=== PATIENT | female | born 1995 | race Caucasian/White ===

== ENCOUNTER → 2022-02-16 13:19 | Outpatient (BNVA) | payer MEDICAID, SELFPAY | PROVIDERS: Visit Provider Nurse Practitioner Family | DX: R11.0 Nausea (principal); Z32.01 Encounter for pregnancy test, result positive | CPT/HCPCS: 81025; 84702 ==

== ENCOUNTER → 2022-04-14 13:53 | Outpatient (BNVA) | payer OTHER, MEDICAID, SELFPAY | PROVIDERS: Visit Provider Registered Nurse Neonatal Intensive Care | DX: Z32.00 Encounter for pregnancy test, result unknown (principal) | CPT/HCPCS: 81025 ==

== ENCOUNTER 2023-08-05 20:08 | Emergency (ER) | payer BC, MEDICAID, SELFPAY ==
[2023-08-05 20:11] VITALS: BP 145/84; PULSE 100; RESP 17; TEMP 36.8; O2SAT 98; BMI 32.9
--- NOTE | 2023-08-05 20:26 | USR_ITS ---
PROCEDURE INFORMATION: Exam: US First Trimester, Transabdominal and US , Transvaginal Exam date and time: 08/05/2023 9:58 PM Age: 28 years old Clinical indication: Lmp or gestational age (in weeks): 6w3d; Antepartum complications; Bleeding; Additional info: Preg, vaginal bleeding LABS AND CLINICAL REPORTS: Last menstrual period start date: 06/21/2023 Gestational age (Established): 6 w 3 d Estimated due date (Established): 03/27/2024 TECHNIQUE: Imaging protocol: Real-time transabdominal obstetrical ultrasound of the maternal pelvis and a first trimester , less than 14 weeks 0 days, with image documentation. Transvaginal imaging was used for better evaluation of the fetus, adnexa, and/or cervix. COMPARISON: No relevant prior studies available. FINDINGS: There is an intrauterine gestational sac that contains a yolk sac, and possibly a very small/early pole. Mean gestational sac diameter of 13.5 mm estimates gestational age of around 6 weeks. Possible [place]Rump Length is too small/early to accurately measure. No definitive pole or heart activity identified at this time. These findings are not always definitely seen until 5 1/2 to 6 weeks gestation. Therefore, viability cannot definitely be confirmed or excluded at this time. If there is further question of viability, follow up exam in several days could be helpful. Cervical length evaluated with endovaginal scanning measures 3.9 cm. No definite cervical canal dilation or fluid on the provided images. Small amount of cul-de-sac/free pelvic fluid. Suspect a small possible complex cyst in the right ovary, measuring 21 x 18 x 18 mm, possibly corpus luteum. Maternal ovaries/adnexa otherwise appear essentially unremarkable. Blood flow detected in each ovary. The urinary bladder was not completely evaluated/imaged at this time. US/US OB <=14 wk fetus w transvag IMPRESSION: 1. Early intrauterine gestational sac containing a yolk sac, and possibly a very small/early pole. See details above. 2. Follow up may be helpful depending on clinical indications. 3. Suspect a small possible complex cyst in the right ovary, measuring 21 x 18 x 18 mm, possibly corpus luteum. 4. Small amount of cul-de-sac/free pelvic fluid. 5. Other details discussed above.
[2023-08-05 20:37] LABS: Blood Urine 3+ (Negative); Glucose Urine UA Norm (Normal); Ketones Urine Negative (Negative); Protein Urine Neg (Negative); Specific Gravity, Urine 1.015 (1.005-1.030); Urine Appearance Clear (CLEAR); Urine Color Yellow (Yellow); pH Urine 6 (5-7)
--- NOTE | 2023-08-05 20:37 | W.ED.FEMALGU ---
HPI - Female Genitourinary General: Chief complaint: Vaginal Bleeding Stated complaint: vaginal bleeding -6 weeks Time Seen by Provider: 08/05/23 20:20 History of Present Illness: 28-year-old female who believes she is 6 weeks by dates. She tells me she has had 2 live births, and a miscarriage involving quadruplets. She has not had significant problems with this . This evening, she noticed orange to red discharge on toilet paper, and then brown/old blood discharge 1 other time. No clots or tissue. She is having some mild pelvic cramping. No fever. No other discharge. Associated symptoms: Deny abdominal pain, headache(s) or nausea Review of Systems Const: Denies: fever(s), chills or body aches Eyes: Denies: change in vision Card: Denies: chest pain or palpitations Resp: Denies: dyspnea, productive cough, non-productive cough or wheezing GI: Denies: abdominal pain, nausea, vomiting, diarrhea or hematochezia : Denies: difficulty voiding Skin/Breast: Denies: rash Neuro: Denies: headache(s), weakness in extremities, dizziness or confusion PFSH ED PFSH: Medical History Left acute otitis media No pertinent past medical history Otitis external Surgical History Hx of appendectomy Hx of section Hx of tonsillectomy Family History Denies family history of Colon cancer Ovarian cancer Diabetes Heart disease Breast cancer Family history of thyroid problem Hypertension Uterine cancer Stroke Hyperchloremia Social History Substance/Drug Use: current Substance/Drug use frequency: daily Physical Exam Const: COMMON NORMALS: no acute distress GENERAL APPEARANCE: cooperative; not ill appearing and not frail appearing HENMT: COMMON NORMALS: normocephalic, atraumatic and Normal external nose present HEAD & SCALP: normocephalic and atraumatic FACE & SINUS: normal facial exam and face symmetric NOSE: Normal external nose present Eye: COMMON NORMALS: Equal, round and reactive pupils present and EOMs intact bilaterally PUPIL: Yes Equal, round and reactive pupils present Neck/C-Spine: GENERAL: Yes trachea midline Chest: CHEST: Yes Symmetrical chest wall rise Resp: COMMON NORMALS: normal respiratory effort, No retractions, No use of accessory muscles and clear to auscultation bilaterally AUSCULTATION: clear to auscultation bilaterally Cardio: COMMON NORMALS: regular rate and regular rhythm RATE: regular rate RHYTHM: regular rhythm GI: COMMON NORMALS: Normal to inspection, nondistended, normoactive bowel sounds present Extremity: COMMON NORMALS: no pedal edema Neuro: ARTEMIO COMA SCALE: document GCS findings [place] coma scale eye opening: Spontaneous [place] coma scale verbal response: Orientated Artemio coma scale motor response: Obey commands [place] coma scale total score: 15 SENSORY EXAM: Yes extremities (intact) Psych: COMMON NORMALS: speech normal SPEECH: Yes normal speech Skin: COMMON NORMALS: no rashes or lesions noted GENERAL SKIN EXAM: no rashes or lesions noted Course Vital Signs: Vital signs: Vital Signs Temperature 98.3 F 08/05/23 20:11 Pulse Rate 92 08/05/23 23:04 Respiratory Rate 16 08/05/23 23:04 Blood Pressure 145/84 08/05/23 20:11 Pulse Oximetry 97 08/05/23 23:04 Oxygen Delivery Me thod Room Air 08/05/23 20:11 MDM - Female Medical Decision Making 28-year-old female who is at 6 weeks. She experience spotting today. No clots or tissue. White blood cell count is 11.7. Hemoglobin 12.3. BMP is normal. Liver enzymes are normal. She is Rh+. Urinalysis is normal. Ultrasound of the pelvis shows a scant amount of pelvic free fluid. There is blood flow to both ovaries. Yolk sac is present in the uterus. Small amount of tissue present in the yolk sac, but is not measurable. Yolk sac measures 6 weeks which is comparable to her hCG and dates by period. She will be allowed home. Pelvic rest. Close outpatient follow-up. Refer to women's health. Lab Data 08/05/23 20:36 08/05/23 20:36 Radiology Impressions Obstetrics Ultrasound 08/05/23 20:26 IMPRESSION: 1. Early intrauterine gestational sac containing a yolk sac, and possibly a very small/early pole. See details above. 2. Follow up may be helpful depending on clinical indications. 3. Suspect a small possible complex cyst in the right ovary, measuring 21 x 18 x 18 mm, possibly corpus luteum. 4. Small amount of cul-de-sac/free pelvic fluid. 5. Other details discussed above. Laboratory Results WBC 11.69 10^3/uL (3.29-11.43) H 08/05/23 20:36 RBC 3.97 10^6/uL (3.85-5.65) 08/05/23 20:36 Hgb 12.30 g/dL (11.27-16.99) 08/05/23 20:36 Hct 37.7 % (36-47) 08/05/23 20:36 MCV 95.0 fl (85-98) 08/05/23 20:36 MCH 31.0 pg (27-33) 08/05/23 20:36 MCHC 32.6 g/dL (30-55) 08/05/23 20:36 RDW 11.9 % (12.1-15.1) L 08/05/23 20:36 Plt Count 276 10^3/cmm (157-399) 08/05/23 20:36 MPV 9.9 fL (7.4-10.4) 08/05/23 20:36 Neut % (Auto) 53.5 % 08/05/23 20:36 Lymph % (Auto) 34.1 % 08/05/23 20:36 [place] % (Auto) 9.5 % 08/05/23 20:36 Eos % (Auto) 2.0 % 08/05/23 20:36 Baso % (Auto) 0.4 % 08/05/23 20:36 Neut # (Auto) 6.25 10^3/uL (1.8-7.7) 08/05/23 20:36 Lymph # (Auto) 4.0 10^3/uL (0.8-4.8) 08/05/23 20:36 [place] # (Auto) 1.1 10^3/uL (0.2-0.9) H 08/05/23 20:36 Eos # (Auto) 0.2 10^3/uL (0.0-0.8) 08/05/23 20:36 Baso # (Auto) 0.1 10^3/uL (0.0-0.1) 08/05/23 20:36 Nucleated RBC % (auto) 0 % 08/05/23 20:36 Nucleated RBCs # 0.0 /100WBC 08/05/23 20:36 PT 13.00 SECONDS (12.1-14.9) 08/05/23 20:36 INR 0.96 (0.8-1.2) 08/05/23 20:36 APTT 28.8 SECONDS (23.9-36.7) 08/05/23 20:36 Sodium 136 mmol/L (136-145) 08/05/23 20:36 Potassium 4.0 mmol/L (3.5-5.1) 08/05/23 20:36 Chloride 103 mmol/L (98-107) 08/05/23 20:36 Carbon Dioxide 26 mmol/L (22-29) 08/05/23 20:36 Anion Gap 11.0 (5-19) 08/05/23 20:36 BUN 14 mg/dL (6-20) 08/05/23 20:36 Creatinine 0.6 mg/dL (0.5-0.9) 08/05/23 20:36 GFR Calculation 117.4 mL/min (90-130) 08/05/23 20:36 Glucose 93 mg/dL (65-115) 08/05/23 20:36 Calculated Osmolality 282 mOsm/kg (285-295) L 08/05/23 20:36 Calcium 9.1 mg/dL (8.5-10.5) 08/05/23 20:36 Total Bilirubin 0.2 mg/dL (0.15-1.2) 08/05/23 20:36 AST 19 U/L (0-32) 08/05/23 20:36 ALT 21 U/L (0-33) 08/05/23 20:36 Alkaline Phosphatase 74 U/L (35-105) 08/05/23 20:36 Total Protein 6.7 g/dL (6.6-8.7) 08/05/23 20:36 Albumin 4.0 g/dL (3.5-5.2) 08/05/23 20:36 Globulin 2.7 g/dL (1.3-4.6) 08/05/23 20:36 Ser , Semi-Qnt 25269.00 mIU/mL 08/05/23 20:36 Urine Color Yellow (Yellow) 08/05/23 20:27 Urine Appearance Clear (CLEAR) 08/05/23 20:27 Urine pH 6 (5-7) 08/05/23 20:27 Ur Specific [place] 1.015 (1.005-1.030) 08/05/23 20:27 Urine Protein Neg (Negative) 08/05/23 20:27 Urine Glucose (UA) Norm (Normal) 08/05/23 20:27 Urine Ketones Negative (Negative) 08/05/23 20:27 Urine Blood 3+ (Negative) H 08/05/23 20:27 Urine Nitrate Negative (Negative) 08/05/23 20:27 Urine Bilirubin Neg (Negative) 08/05/23 20:27 Urine Urobilinogen Neg mg/dL (Negative) 08/05/23 20:27 Ur Leukocyte Esterase Negative (Negative) 08/05/23 20:27 Urine RBC 0-4 /hpf (0-2) H 08/05/23 20:27 Urine WBC None /hpf (0-5) 08/05/23 20:27 Ur Squamous Epith Cells None /hpf (0-5) 08/05/23 20:27 Amorphous Sediment Not Reportable 08/05/23 20:27 Urine Bacteria None /hpf (NONE) 08/05/23 20:27 Blood Type O Positive 08/05/23 20:36 Rho(D) Type Rh positive 08/05/23 20:36 All radiology interpretation(s) finalized by discharge Discharge Plan Discharge Patient Disposition: Home Clinical Impression: Threatened Condition: Stable Prescriptions: No Action cyclobenzaprine 5 mg tablet 5 mg PO TID PRN (Reason: muscle spasm) Qty: 14 0RF prednisone 20 mg tablet 40 mg PO DAILY 5 Days Qty: 10 0RF amoxicillin 875 mg tablet 875 mg PO BID 10 Days Qty: 20 0RF Discharge Orders: Discharge ED (Routine); Ordered 08/05/23 Ordered By: Mahesh Hutson Patient Instructions: Threatened Miscarriage (ED) Activity Restrictions/Additional Instructions: You are being diagnosed with a threatened miscarriage, which simply means you have had bleeding in early . Your appears viable, and appropriate to gestational dates associated with your last menstrual period. Follow-up with your doctor. Case management will help you find an software asset management analyst. Return for worsening vaginal bleeding, passing clots, soaking a pad an hour for more than 3 hours in a row, fever, vomiting, other concerning symptoms. Do not lift anything greater than 10 pounds, limit bending and stooping, and no sexual intercourse for the next week. Coding Level of Care Code ED Health Care Coach for Mariana Das
[2023-08-05 20:38] LABS: Add Urine Microscopic? YES; Bilirubin Urine Neg (Negative); Leukocyte Esterase Urine Negative (Negative); Nitrate Urine Negative (Negative); Urobilinogen Urine Neg (Negative)
[2023-08-05 20:50] LABS: Basophils # 0.1 10^3/uL (0.0-0.1); Basophils % 0.4 %; Eosinophils # 0.2 10^3/uL (0.0-0.8); Hematocrit 37.7 % (36-47); Lymphocytes % 34.1 %; Mean Corpuscular HGB Conc 32.6 g/dL (30-55); Mean Platelet Volume 9.9 fL (7.4-10.4); Monocytes # 1.1 10^3/uL (0.2-0.9); Monocytes % 9.5 %; Neutrophils # 6.25 10^3/uL (1.8-7.7); Neutrophils % 53.5 %; Nucleated Red Blood Cells % 0 %; Platelet Count 276 10^3/cmm (157-399); Red Blood Count 3.97 10^6/uL (3.85-5.65); Red Cell Distribution Width 11.9 % (12.1-15.1); White Blood Count 11.69 10^3/uL (3.29-11.43)
[2023-08-05 20:50] LABS: Add Urine Culture? No; RBC Urine 0-4 /hpf (0-2)
[2023-08-05 21:04] LABS: INR 0.96 (0.8-1.2)
[2023-08-05 21:05] LABS: Partial Thromboplastin Time 28.8 SECONDS (23.9-36.7)
[2023-08-05 21:23] LABS: Alanine Aminotransferase 21 U/L (0-33); Alkaline Phosphatase 74 U/L (35-105); Aspartate Amino Transferase 19 U/L (0-32); Blood Urea Nitrogen 14 mg/dL (6-20); Calcium 9.1 mg/dL (8.5-10.5); Carbon Dioxide 26 mmol/L (22-29); Chloride 103 mmol/L (98-107); Globulin 2.7 g/dL (1.3-4.6); Glomerular Filtration Rate 117.4 mL/min (90-130); Glucose 93 mg/dL (65-115); Osmolality Calculated 282 mOsm/kg (285-295); Sodium 136 mmol/L (136-145); Total Bilirubin 0.2 mg/dL (0.15-1.2); Total Protein 6.7 g/dL (6.6-8.7)
[2023-08-05 23:04] VITALS: PULSE 92; RESP 16; O2SAT 97
--- NOTE | 2023-08-06 07:17 | DCPLANNER ---
Message sent to [facility] .
== END 2023-08-05 23:02 | disposition home or self-care (01) ==
PROVIDERS: Emergency Provider Emergency Medicine
DX: O20.0 Threatened abortion (principal); Z3A.01 Less than 8 weeks gestation of pregnancy
CPT/HCPCS: 36415; 76801; 76817; 80053; 81001; 84702; 85025; 85610; 85730; 86900; 99284

== ENCOUNTER 2024-03-27 03:52 | Inpatient (IN) | payer BC, MEDICAID, SELFPAY ==
[2024-03-27] VITALS (52 sets, daily range): BP systolic 93–146; BP diastolic 51–102; PULSE 47–114; RESP 15–18; TEMP 36.5–36.7; O2SAT 92–99
[2024-03-27 03:55] LABS: Basophils # 0.1 10^3/uL (0.0-0.1); Basophils % 0.4 %; Eosinophils # 0.1 10^3/uL (0.0-0.8); Eosinophils % 0.8 %; Hematocrit 35.9 % (36-47); Lymphocytes # 3.4 10^3/uL (0.8-4.8); Lymphocytes % 22.1 %; Mean Corpuscular HGB Conc 34.5 g/dL (30-55); Mean Corpuscular Hemoglobin 31.8 pg (27-33); Mean Corpuscular Volume 92.1 fl (85-98); Mean Platelet Volume 10.8 fL (7.4-10.4); Monocytes # 1.4 10^3/uL (0.2-0.9); Monocytes % 9.1 %; Neutrophils # 10.21 10^3/uL (1.8-7.7); Neutrophils % 66.6 %; Nucleated Red Blood Cells % 0 %; Platelet Count 252 10^3/cmm (157-399); Red Cell Distribution Width 12.8 % (12.1-15.1); White Blood Count 15.33 10^3/uL (3.29-11.43)
[2024-03-27] MEDS: lactated ringers 1,000 ML 999 ML IV (04:16)
[2024-03-27] MEDS: famotidine 20 mg/2 mL INJ IVP (04:17)
[2024-03-27] MEDS: ceFAZolin 2,000 mg SDV 2000 MG IVP (04:25)
--- NOTE | 2024-03-27 04:55 | P.ANESASSM_ITS ---
Pre-Anesthetic Assessment Height/Weight: Height 1.57 m Pulse BP 114 H 146/102 03/27/24 03:44 03/27/24 03:44 Preop Diagnosis: Prior Operation Date: 03/27/24 04:30 Proposed Procedures p Section(Not Applicable) - Ora Shankar MD Was Beta Quincy taken within 24 hours: N/A Was Clonidine taken within 24 hours: N/A Social Tobacco Vaps. Smokes marijuana daily Exam alert, oriented x 3, clear to auscultation bilaterally and regular rate & rhythm Airway Submandibular: within normal limits Cervical ROM: within normal limits Mallampati: Class II Dentition: chipped Comments: Comments: Very poor dentition History/ROS No significant history except as noted and No significant complaints Pulmonary None reported CV/HEM None reported None reported Hepatic None reported GI Gastroesophageal Reflux Disease Metabolic None reported Musc/skel None reported Neuropsych None reported Anesthetic Plan ASA status: 2E Anesthesia: Anesthesia Evaluation and Regional (specify below) Other: SAB Risk of > 500 ml blood loss (7ml/kg in children): No Medications/Allergies Home Medications Medication Instructions Recorded Confirmed Last Taken Type cyclobenzaprine 5 mg tablet 5 mg PO TID PRN muscle spasm #14 05/31/23 06/25/23 Unknown Rx tabs prednisone 20 mg tablet 40 mg (2 x 20 mg) PO DAILY 5 days 05/31/23 06/25/23 Unknown Rx #10 tabs amoxicillin 875 mg tablet 875 mg PO BID 10 days #20 tabs 06/25/23 06/25/23 Unknown Rx Allergies Allergy/AdvReac Type Severity Reaction Status Date / Time No Known Allergies Allergy Verified 06/25/23 08:36 Current Medications Generic Name Dose Route Start Last Admin Trade Name Freq PRN Reason Stop Dose Admin Lactated Ringer's 1,000 mls @ 125 mls/hr 03/27/24 03:45 03/27/24 04:16 Lactated Ringers IV 999 mls/hr .Q8H SHANDA Administration PFSH Anesthesia Medical History Left acute otitis media No pertinent past medical history Otitis external Surgical History Hx of appendectomy Hx of section Hx of tonsillectomy Family History Denies family history of Colon cancer Ovarian cancer Diabetes Heart disease Breast cancer Family history of thyroid problem Hypertension Uterine cancer Stroke Hyperchloremia Social History Substance/Drug Use: current Substance/Drug use frequency: daily Data Anesthesia 03/27/24 03:38 Short CBC 03/27/24 Range/Units 03:38 WBC 15.33 H (3.29-11.43) 10^3/uL Hgb 12.40 (11.27-16.99) g/dL Hct 35.9 L (36-47) % MCV 92.1 (85-98) fl Plt Count 252 (157-399) 10^3/cmm Neut % (Auto) 66.6 % Neut # (Auto) 10.21 H (1.8-7.7) 10^3/uL Blood Bank 03/27/24 03:38 Blood Type O Positive Rho(D) Type Rh positive Antibody Screen Negative Cardiac Studies: 2 No Data to Display
--- NOTE | 2024-03-27 05:21 | SUR.OPER ---
0420 PT BROUGHT TO ROOM BY ob STAFF.
--- NOTE | 2024-03-27 05:42 | SUR.OPER ---
0533 RECOVERY NURSE ELROY WALTER GIVEN REPORT AND TAKING OVER CARE. PT MOVED TO HER BED WITHOUT DIFFICULTY.
--- NOTE | 2024-03-27 06:19 | P.HP_ITS ---
Providers/Chief Complaint 2 Admitting Physician: Ora Shankar MD Primary Care Provider: Masood Ross MD Chief Complaint: Contractions History of Present Illness Rosalia Salgado is a 28 year old female at 39 weeks 1 day gestation who presented to labor and delivery in active labor. She has a history of prior section x 2 and was scheduled to have a repeat section early next week. She was macie regularly about every 2 minutes and they were very painful. Cervical exam was 1 to 2 cm 70% effaced. heart tones were 160s with minimal variability and no accelerations but no decelerations. Decision was made to proceed with emergent repeat section Review of Systems 2 Narrative: Contractions began around 11 PM and progressively became more painful to where they awoke her from sleep. She has had no loss of fluid, no vaginal bleeding. She has good movement. Medications/Allergies Home Medications Medication Instructions Recorded Confirmed Last Taken Type cyclobenzaprine 5 mg tablet 5 mg PO TID PRN muscle spasm #14 05/31/23 06/25/23 Unknown Rx tabs prednisone 20 mg tablet 40 mg (2 x 20 mg) PO DAILY 5 days 05/31/23 06/25/23 Unknown Rx #10 tabs amoxicillin 875 mg tablet 875 mg PO BID 10 days #20 tabs 06/25/23 06/25/23 Unknown Rx Allergies Allergy/AdvReac Type Severity Reaction Status Date / Time No Known Allergies Allergy Verified 06/25/23 08:36 PFSH Acute 2 PFSH: Medical History Left acute otitis media No pertinent past medical history Otitis external Surgical History Hx of appendectomy Hx of section Hx of tonsillectomy Family History Denies family history of Colon cancer Ovarian cancer Diabetes Heart disease Breast cancer Family history of thyroid problem Hypertension Uterine cancer Stroke Hyperchloremia Social History Substance/Drug Use: current Substance/Drug use frequency: daily Vitals/I&O/Wt Last Vital Signs Pulse 114 H 03/27/24 03:44 BP 146/102 03/27/24 03:44 Physical Exam 2 Narrative: In acute distress with contractions, standing and holding abdomen, diaphoretic and red-faced, heart tachycardic no murmurs, lungs clear to auscultation bilaterally, abdomen is nontender, extremities have trace edema Urinary Catheter Management: Conrad: Cath Placed During This Visit: yes Urinary Catheter Date of Insertion: 03/27/24 Urinary Catheter Time of Insertion: 04:45 Data 03/27/24 03:38 A&P Assessment and plan (1) with 39 completed weeks gestation: (2) History of section complicating : Patient is in active labor we will proceed with emergent repeat section Attestations 2 Medical Necessity Statement*: Surgery and routine care Coding Level of Care Code Acute Code for Chg Fwd Diagnoses with 39 completed weeks gestation Z3A.39 History of section complicating O34.219
--- NOTE | 2024-03-27 06:27 | PM.OP ---
Operative Report Date of procedure: March 27, 2024 Pre-op diagnosis: History of section x 2 IUP at 39 weeks 1 days gestation Active labor Post-op diagnosis: Same Procedure done: Emergent repeat low-transverse section Specimens removed/disposition: Vertex female weight 3220 g, Apgars 6 and 9 Surgeon: Ora Shankar MD Anesthesia: Spinal Estimated blood loss (mL): 800 IV fluids (mL): 1,500 Urine output (mL): 50 Complications: None Procedure: After informed consent the patient was taken to the OR where spinal anesthesia was administered. She was prepped and draped in normal sterile fashion in dorsal supine position with a left lateral tilt. A Pfannenstiel skin incision was made through the previous scar and carried through to the underlying layer of fascia sharply. The fascial incision was then extended laterally using the [place]. The fascia was grasped with Pawel clamps and the underlying rectus muscles were dissected off. It was noted that the peritoneum was adhered to the fascia and it was entered sharply. The incision site was manually stretched. It was noted that the vesicouterine peritoneum was relatively scarred. The vesicouterine peritoneum was entered sharply using the Metzen[place]ums and a bladder flap was created digitally. The lower uterine segment was extremely thin and translucent. Incision was made in a transverse fashion in the lower uterine segment and thick meconium was present with rupture membranes. The infant was delivered atraumatically with bulb suction of the mouth and naris at delivery. The cord was clamped and cut and the infant was handed to the waiting pediatric team. The infant weighed 3220 g and had Apgars of 6 and 9. The placenta was delivered grossly intact and normal to inspection using fundal pressure. The uterus was then exteriorized from the abdomen and a dry sponge was used to clear the uterus of clots and debris. The lower uterine segment was extremely thin and friable but the uterine incision was repaired using 0 chromic in a running locked fashion. A second layer of the same suture was used in an imbricating manner. On the lateral aspects the vesicouterine peritoneum was incorporated into the sutures to provide extra support. The uterus was then returned to the abdomen. Irrigation was used to clear the gutters of clots and debris. The uterine incision was then reinspected for hemostasis. The peritoneum was then reapproximated using 4-0 Vicryl in a running fashion. The subfascial tissue was inspected for hemostasis and then the fascia was reapproximated using 0 Vicryl in a running fashion. The subcutaneous tissue was irrigated and the subcutaneous tissue was reapproximated using 4-0 Vicryl in a running fashion. The skin was then reapproximated using 4-0 Vicryl in a running fashion on a Pietro needle. Steri-Strips and a pressure bandage were applied and patient went to recovery in stable condition. There were no complications during the procedure. Sponge instrument and needle counts were correct.
[2024-03-27 08:51] LABS: Amphetamines Screen Urine Negative (Negative); Barbiturates Screen Urine Negative (Negative); Benzodiazepines Screen Urine Negative (Negative); Cocaine Screen Urine Negative (Negative); Opiate Screen Urine Negative (Negative); PCP Screen Urine Negative (Negative); THC Screen Urine Positive (Negative)
[2024-03-27] MEDS: fluconazole 100 mg Tablet 200 MG PO (11:11)
[2024-03-27] MEDS: nicotine 14 mg Patch 1 PATCH TRANSDERMA (11:14)
[2024-03-27] MEDS: ibuprofen 800 mg tablet PO ×2 (15:49→22:28)
[2024-03-27] MEDS: ferrous sulfate EC 325 mg Tablet PO (22:28)
[2024-03-27] MEDS: docusate sodium 100 mg Capsule PO (22:28)
[2024-03-27 23:05] LABS: Hematocrit 32.7 % (36-47); Mean Corpuscular HGB Conc 32.7 g/dL (30-55); Mean Corpuscular Hemoglobin 31.2 pg (27-33); Mean Corpuscular Volume 95.3 fl (85-98); Mean Platelet Volume 11.3 fL (7.4-10.4); Platelet Count 265 10^3/cmm (157-399); Red Blood Count 3.43 10^6/uL (3.85-5.65); Red Cell Distribution Width 12.8 % (12.1-15.1); White Blood Count 23.23 10^3/uL (3.29-11.43)
--- NOTE | 2024-03-28 07:54 | P.DS_ITS ---
Discharge Providers Date of Admission: 03/27/24 03:52 Date of Discharge: March 28, 2024 Attending Provider at Admission: Masood Ross MD Attending Provider at Discharge: Ora Shankar MD Primary Care Provider: Masood Ross MD Diagnoses at Discharge Discharge Diagnosis (1) Status post repeat low transverse section: Status: Acute Reason for Visit Reason for Visit: Contractions Hospital Course Hospital Course This is a 28-year-old G3 now P3 who underwent an emergent repeat section at 39 weeks gestation due to onset of active labor. There were no complications during the procedure. She did well postoperatively. On postop day #1 she was requesting discharge home. She was ambulating, tolerating a regular diet, had good pain control and minimal vaginal bleeding. Physical Exam Narrative: Alert and oriented, sitting up in bed with the infant, heart regular rate and rhythm, lungs clear to auscultation bilaterally, abdomen is soft with appropriate postoperative tenderness, pressure bandage is clean dry and intact, extremities have trace edema but no calf tenderness Urinary Catheter Management: Conrad: Cath Placed During This Visit: yes, but has since been removed by the nurse Reason for Continuing Indwelling Catheter: Decision to DC Catheter Urinary Catheter Date of Insertion: 03/27/24 Urinary Catheter Time of Insertion: 04:45 Date Urinary Catheter Removed: 03/27/24 Time Urinary Catheter Discontinued: 13:45 Discharge Data Studies Completed and Pending Laboratory Results WBC 23.23 10^3/uL (3.29-11.43) H 03/27/24 17:09 RBC 3.43 10^6/uL (3.85-5.65) L 03/27/24 17:09 Hgb 10.70 g/dL (11.27-16.99) L 03/27/24 17:09 Hct 32.7 % (36-47) L 03/27/24 17:09 MCV 95.3 fl (85-98) 03/27/24 17:09 MCH 31.2 pg (27-33) 03/27/24 17:09 MCHC 32.7 g/dL (30-55) D 03/27/24 17:09 RDW 12.8 % (12.1-15.1) 03/27/24 17:09 Plt Count 265 10^3/cmm (157-399) 03/27/24 17:09 MPV 11.3 fL (7.4-10.4) H 03/27/24 17:09 Neut % (Auto) 66.6 % 03/27/24 03:38 Lymph % (Auto) 22.1 % 03/27/24 03:38 [place] % (Auto) 9.1 % 03/27/24 03:38 Eos % (Auto) 0.8 % 03/27/24 03:38 Baso % (Auto) 0.4 % 03/27/24 03:38 Neut # (Auto) 10.21 10^3/uL (1.8-7.7) H 03/27/24 03:38 Lymph # (Auto) 3.4 10^3/uL (0.8-4.8) 03/27/24 03:38 [place] # (Auto) 1.4 10^3/uL (0.2-0.9) H 03/27/24 03:38 Eos # (Auto) 0.1 10^3/uL (0.0-0.8) 03/27/24 03:38 Baso # (Auto) 0.1 10^3/uL (0.0-0.1) 03/27/24 03:38 Nucleated RBC % (auto) 0 % 03/27/24 03:38 Nucleated RBCs # 0.0 /100WBC 03/27/24 03:38 Urine Opiates Screen Negative ng/mL (Negative) 03/27/24 Unknown Ur Barbiturates Screen Negative ng/mL (Negative) 03/27/24 Unknown Ur Phencyclidine Scrn Negative ng/mL (Negative) 03/27/24 Unknown Ur Amphetamines Screen Negative ng/mL (Negative) 03/27/24 Unknown U Benzodiazepines Scrn Negative ng/mL (Negative) 03/27/24 Unknown Urine Cocaine Screen Negative ng/mL (Negative) 03/27/24 Unknown U Marijuana (THC) Screen Positive ng/mL (Negative) H 03/27/24 Unknown Blood Type O Positive 03/27/24 03:38 Rho(D) Type Rh positive 03/27/24 03:38 Antibody Screen Negative 03/27/24 03:38 Vitals Last Vital Signs Temp 98.0 F 03/27/24 22:34 Pulse 66 03/27/24 22:34 Resp 16 03/27/24 22:34 BP 99/62 03/27/24 22:34 Pulse Ox 97 03/27/24 22:34 O2 Del Method Room Air 03/27/24 22:34 Discharge Plan Discharge Patient Disposition: Home Condition: Stable Prescriptions: New ibuprofen 800 mg Tablet 800 mg PO TID PRN (Reason: Abdominal Discomfort) Qty: 40 0RF hydrocodone-acetaminophen 5-325 mg Tablet 1 - 2 tab PO Q4H PRN (Reason: Moderate To Severe Pain) Qty: 15 0RF docusate sodium 100 mg Capsule 100 mg PO BID Qty: 60 0RF Continued [id number] 1 mg Tablet 1 tab PO DAILY Discharge Orders: Discharge Order (Routine); Ordered 03/28/24 Ordered By: Ora Shankar Referrals: Ora Shankar MD [Physician] - 4-7 days (Tues with Vonnie) Discharge Diet: Usual diet Discharge Activity: Limit activity as instructed Patient Instructions: Opioid Safety Activity Restrictions/Additional Instructions: Nothing per vagina for 6 weeks. No lifting anything greater than 10 pounds for 2 weeks. Discharge Attestations Time Spent in Discharge Care*: less than 30 min Quality Metrics Clinical Quality Measures [ No reported AMI, CVA or VTE this stay] Coding Level of Care Code Acute Code for Chg Fwd Diagnoses Status post repeat low transverse section Z98.891
[2024-03-28] MEDS: ferrous sulfate EC 325 mg Tablet PO (08:24)
[2024-03-28] MEDS: docusate sodium 100 mg Capsule PO (08:24)
[2024-03-28] MEDS: PRENATAL VIT NO.130/IRON/FOLIC 1 EACH TABLET PO (08:24)
[2024-03-28] MEDS: ibuprofen 800 mg tablet PO (08:25)
[2024-03-28 10:15] VITALS: BP 116/81; PULSE 96; RESP 16; TEMP 36.4
[2024-03-28 16:30] VITALS: BP 123/73; PULSE 80; RESP 16; RESP 18; TEMP 36.7
[2024-03-28] MEDS: HYDROcodone-acetaminophen 5-325 mg Tablet PO (16:39)
== END 2024-03-28 16:50 | disposition home or self-care (01) | DRG 787 ==
LOC: OPOB 03:53 → OBGYN 03:53
PROVIDERS: Admitting Provider Family Medicine; PCP Family Medicine; Visit Provider Family Medicine
PROC: 10D00Z1 Extraction of Products of Conception, Low, Open Approach (ICD-10-PCS; CPT 59514; principal; 2024-03-27 04:30)
DX: O34.211 Maternal care for low transverse scar from previous cesarean delivery (principal); O99.324 Drug use complicating childbirth; N85.8 Other specified noninflammatory disorders of uterus; Z3A.39 39 weeks gestation of pregnancy; Z37.0 Single live birth; F12.10 Cannabis abuse, uncomplicated
CPT/HCPCS: 36415; 51702; 59025; 59409; 80306; 85025; 85027; 86850; 86900; 96374; 99211; J0690; J1100; J1200; J1885; J2274; J2405; J2765; J3010; J3490; J7030; J7120